=== PATIENT | male | born 1945 | race Caucasian/White ===

== ENCOUNTER 2021-05-12 02:42 | Day surgery (SDC) | payer OTHER, SELFPAY ==
[2021-03-27 14:17] VITALS: BMI 22.1
[2021-04-24 14:30] VITALS: BMI 22.4
[2021-05-12 06:54] VITALS: BP 158/67; PULSE 67; RESP 18; TEMP 36.4; O2SAT 100; BMI 21.4
[2021-05-12] MEDS: LACTATED RINGERS 1,000 ML 150 ML IV CONT (07:01)
--- NOTE | 2021-05-12 07:21 | WPDANESEPPF ---
Anes - Initial Pre Proc Eval Procedure: Operation Date: 05/12/21 08:00 Proposed Procedures p Colonoscopy - Morris Vyas MD Date/Time: 05/12/21 07:21 Surgeon: Morris Vyas MD Pre Op Diagnosis: ulcerative colitis Patient Data Age: 76 Gender: M Height: 1.75 m Weight: 66 kg Last Vital Signs Temp 36.4 C L 05/12/21 06:54 Pulse 67 05/12/21 06:54 Resp 18 05/12/21 06:54 BP 158/67 H 05/12/21 06:54 Pulse Ox 100 05/12/21 06:54 Allergies Allergy/AdvReac Type Severity Reaction Status Date / Time No Known Allergies Allergy Verified 05/12/21 06:52 Home Medications Medication Instructions Recorded Confirmed Type balsalazide 750 mg capsule 2,250 mg PO BID 05/19/19 04/24/21 History cetirizine 10 mg tablet 5 mg PO DAILY PRN 05/19/19 03/27/21 History flaxseed oil 1,000 mg capsule 1,000 mg PO DAILY 05/19/19 04/24/21 History glucosamine sulfate 500 mg tablet 500 mg PO BID 05/19/19 04/24/21 History multivitamin 2 tablet PO DAILY tablet 05/19/19 04/24/21 History saw palmetto 1,000 mg capsule 1,000 mg PO DAILY 05/19/19 04/24/21 History azelastine 137 mcg (0.1 %) nasal See Rx Instructions .ROUTE .COMPLEX 06/19/19 03/10/21 History spray aerosol sildenafil 100 mg tablet See Rx Instructions .ROUTE 06/19/19 03/10/21 History .COMPLEX PRN infliximab 100 mg intravenous 400 mg IVPB .COMPLEX each 02/19/20 04/24/21 History solution famotidine 40 mg tablet See Rx Instructions .ROUTE 11/14/20 03/27/21 Rx .COMPLEX #180 tablet fenofibric acid (choline) 135 mg See Rx Instructions .ROUTE 01/23/21 04/24/21 Rx capsule,delayed release .COMPLEX #90 cap ipratropium bromide 42 mcg (0.06 See Rx Instructions .ROUTE 02/15/21 03/10/21 Rx %) nasal spray .COMPLEX #15 ml lisinopril 20 mg tablet See Rx Instructions .ROUTE 04/24/21 04/24/21 Rx .COMPLEX #90 tablet zolpidem 5 mg PO ONCE PRN 04/24/21 04/24/21 History Patient hx anesthesia problems: none Family hx anesthesia problems: none Results Review: All pre-operative results and documents have been reviewed as part of the pre-operative evaluation. [facility] Past Medical History Medical History Arthritis Chronic GERD Degenerative joint disease, shoulder, left HTN (hypertension) Impingement syndrome of left shoulder Left shoulder pain Psoriasis Seasonal allergic rhinitis Ulcerative colitis Vision abnormalities Family History Family History Father Family history of cardiovascular disease, Onset Age: 68 Family history of liver disease, Onset Age: 68 Sibling Family history of lung cancer, Onset Age: 56 Mother Family history of dementia, Onset Age: 87 Family history of congestive heart failure, Onset Age: 87 Other Hypertension Social History Social History Smoking status: Former smoker Additional smoking assessment comments: quit 38 years Alcohol intake: current Drinks per week: 14 Alcohol use details: OCCATIONALLY Substance use: unknown Living arrangements: with family Gender identity (if verbalized by the patient): Male Spiritual care concerns: No Anes - Eval Final PreProcedure Day of Procedure 05/12/21 07:21 Patient weight: normal Heart: regular rate and rhythm Airway: Mallampati scale class II Neurological: alert and oriented Last oral intake: >/= 8 hours ASA classification: III Emergent: no Anesthetic plan: proceed Anesthesia type and monitoring: general GIVS and standard monitoring Results Review: All pre-operative results and documents have been reviewed as part of the pre-operative evaluation. Informed Consent: The patient's anesthetic plan and its attendant risks and benefits were discussed with the patient/family/POA. Questions were solicited and answers provided to the satisfaction of the patient/f
--- NOTE | 2021-05-12 07:51 | WPDGICN ---
Assessment and Plan Assessment and plan (1) Ulcerative colitis: Qualifiers: Ulcerative colitis location: unspecified ulcerative colitis location Digestive disease complication type: without complication Qualified Code(s): K51.90 - Ulcerative colitis, unspecified, without complications Code(s): K51.90 - Ulcerative colitis, unspecified, without complications Status: Acute Assessment and Plan: Patient with a longstanding history of ulcerative colitis. Plan is for surveillance colonoscopy now and at intervals in the future. he should continue Remicade and balsalazide. Further recommendations will be given after colonoscopy. (2) Chronic GERD: Code(s): K21.9 - Gastro-esophageal reflux disease without esophagitis Status: Acute Assessment and Plan: Patient has a history of acid reflux. Currently stable on famotidine 40 mg p.o. daily. GI Consult Note Consult date/time: 05/12/21 07:51 HPI: Issac Downing is a 76 year old male Presents for surveillance colonoscopy. Patient has a long history of ulcerative colitis. He has been in remission for several years on Remicade supplement with balsalazide. He states he has no bleeding. His bowel habits are normal and regular. He very infrequently will take an Imodium AD if he has a brief loose stool. His weight has remained stable. The history is noncontributory. He presents today for surveillance examination. Review of Systems Review of Systems: All systems reviewed & are unremarkable except as noted in HPI and below PMFSH Past Medical History Medical History Arthritis Chronic GERD Degenerative joint disease, shoulder, left HTN (hypertension) Impingement syndrome of left shoulder Left shoulder pain Psoriasis Seasonal allergic rhinitis Ulcerative colitis Vision abnormalities Family History Family History Father Family history of cardiovascular disease, Onset Age: 68 Family history of liver disease, Onset Age: 68 Sibling Family history of lung cancer, Onset Age: 56 Mother Family history of dementia, Onset Age: 87 Family history of congestive heart failure, Onset Age: 87 Other Hypertension Social History Social History Smoking status: Former smoker Additional smoking assessment comments: quit 38 years Alcohol intake: current Drinks per week: 14 Alcohol use details: OCCATIONALLY Substance use: unknown Living arrangements: with family Gender identity (if verbalized by the patient): Male Spiritual care concerns: No Meds Home Medications and Allergies Home Medications Medication Instructions Recorded Confirmed Type balsalazide 750 mg capsule 2,250 mg PO BID 05/19/19 04/24/21 History cetirizine 10 mg tablet 5 mg PO DAILY PRN 05/19/19 03/27/21 History flaxseed oil 1,000 mg capsule 1,000 mg PO DAILY 05/19/19 04/24/21 History glucosamine sulfate 500 mg tablet 500 mg PO BID 05/19/19 04/24/21 History multivitamin 2 tablet PO DAILY tablet 05/19/19 04/24/21 History saw palmetto 1,000 mg capsule 1,000 mg PO DAILY 05/19/19 04/24/21 History azelastine 137 mcg (0.1 %) nasal See Rx Instructions .ROUTE .COMPLEX 06/19/19 03/10/21 History spray aerosol sildenafil 100 mg tablet See Rx Instructions .ROUTE 06/19/19 03/10/21 History .COMPLEX PRN infliximab 100 mg intravenous 400 mg IVPB .COMPLEX each 02/19/20 04/24/21 History solution famotidine 40 mg tablet See Rx Instructions .ROUTE 11/14/20 03/27/21 Rx .COMPLEX #180 tablet fenofibric acid (choline) 135 mg See Rx Instructions .ROUTE 01/23/21 04/24/21 Rx capsule,delayed release .COMPLEX #90 cap ipratropium bromide 42 mcg (0.06 See Rx Instructions .ROUTE 02/15/21 03/10/21 Rx %) nasal spray .COMPLEX #15 ml lisinopril 20 mg tablet See R
[2021-05-12 08:16] VITALS: BP 96/45; PULSE 58; RESP 20; O2SAT 97
[2021-05-12 08:26] VITALS: BP 124/58; PULSE 54; RESP 20; O2SAT 99
[2021-05-12 08:36] VITALS: BP 138/74; PULSE 64; RESP 18; O2SAT 99
== END 2021-05-12 08:44 | disposition home or self-care (01) ==
PROVIDERS: PCP Emergency Medicine; Visit Provider Internal Medicine Gastroenterology
PROC: 0DJD8ZZ Inspection of Lower Intestinal Tract, Via Natural or Artificial Opening Endoscopic (ICD-10-PCS; CPT 45378; principal; 2021-05-12 08:00)
DX: K51.00 Ulcerative (chronic) pancolitis without complications (principal); K64.8 Other hemorrhoids; K57.30 Diverticulosis of large intestine without perforation or abscess without bleeding; K21.9 Gastro-esophageal reflux disease without esophagitis; M19.90 Unspecified osteoarthritis, unspecified site; I10 Essential (primary) hypertension; L40.9 Psoriasis, unspecified; Z87.891 Personal history of nicotine dependence
CPT/HCPCS: 45380; 88305; J7120

== ENCOUNTER → 2022-05-03 11:43 | Outpatient (CLI) | payer OTHER, SELFPAY ==
--- NOTE | ~2022-05-03 | DEXA_ITS ---
Bone Density Report Name: AXEL MCKAY Age: 77 Sex: Male Ethnicity: White Date of : 1945 Indication: screening for osteoporosis; height loss; inflammatory bowel disease; postmenopausal Referring Provider: JOEY GUTIERREZ Study: Bone densitometry was performed. Exam Date: May 03, 2022 Accession number: [id number] Bone Density: Region BMD T-score Z-score Classification AP Spine (L1-L4) 1.191 0.9 1.9 Normal Femoral Neck (Left) 0.775 -1.1 0.2 Osteopenia Total Hip (Left) 0.964 -0.5 0.4 Normal Femoral Neck (Right) 0.766 -1.2 0.1 Osteopenia Total Hip (Right) 0.917 -0.8 0.1 Normal Total Hip Mean 0.941 -0.7 0.3 Normal World Health Organization criteria for BMD impression classify patients as: Normal (T-score at or above -1.0), Osteopenia (T-score between -1.0 and -2.5), or Osteoporosis (T-score at or below -2.5). 10-year Fracture Risk(1): Major Osteoporotic Fracture 5.6% Hip Fracture 1.5% Reported Risk Factors: [place] (), Neck BMD=0.766, BMI=22.8 (1) FRAX(R) Version 3.08. Fracture probability calculated for an untreated patient. Fracture probability may be lower if the patient has received treatment. Clinical Information Provided by Patient: Has used the following medications: Vitamin D Has the following medical conditions: Inflammatory bowel diseases Patient maximum height was 69 Drinks caffeinated beverages Impression: The patient has low bone mass, based on the Right Femoral Neck T-score. The patient has an estimated ten-year risk of hip fracture of 1.5% and an estimated ten-year risk of major fracture of 5.6%, based on the WHO FRAX algorithm. Discussion: BONE DENSITY IS LOW AT ONE OR MORE SKELETAL SITES. This patient's lowest T-score is low at one or more skeletal sites. It meets the World Health Organization's (WHO) criteria for ?low bone mass? (T-score between -1.0 and -2.5). The patient's 10-year risk of fracture as calculated by FRAX is less than the threshold where pharmacological therapy is recommended by the National Osteoporosis Foundation (NOF). However, all treatment decisions require clinical judgment and consideration of individual patient factors, including patient preferences, comorbidities, previous drug use, risk factors not captured in the FRAX model (e.g., frailty, falls, vitamin D deficiency, increased bone turnover, interval significant decline in bone density) and possible under or overestimation of fracture risk by FRAX. The patient should follow a healthful lifestyle (good nutrition with adequate calcium and vitamin D, and appropriate weight-bearing exercise). Follow-Up: Consider repeating this study in 2 to 3 years to reassess this patient's status, or sooner if there is some new clinical indication. Reported by: [facility] on 05/03/2022 12:02:00 PM.
== END ==
PROVIDERS: PCP Emergency Medicine; Visit Provider Emergency Medicine
DX: M85.822 Other specified disorders of bone density and structure, left upper arm (principal); M85.852 Other specified disorders of bone density and structure, left thigh; M85.851 Other specified disorders of bone density and structure, right thigh
CPT/HCPCS: 77080

== ENCOUNTER 2023-04-17 16:06 | Outpatient (CLI) | payer OTHER, SELFPAY ==
--- NOTE | ~2023-04-17 | US_ITS ---
EXAMINATION: US carotid duplex BI DATE: 04/17/2023 16:41 INDICATION: Carotid bruit TECHNIQUE: Grayscale, color Doppler, and pulsed Doppler images of the cervical carotid arteries were obtained. The degree of vessel stenosis is placed in one of the following categories: normal, <50%, 5 0-69%, >=70% but less than near-occlusion, near-occlusion, or total occlusion. Note that percent sten osis relative to normal distal artery lumen diameter is indirectly measured from velocity measurement s as described by Kemar, et al. Radiology 2003; 229:340-346. Notes: Normal: Peak systolic velocity <125 centimeters/sec and no plaque <50%. Peak systolic velocity <125 ( EDV <40; ICA/CCA PSV ratio <2.0; used these factors only a tandem lesions or low cardiac output or co ntralateral disease) 50-69 %: PSV 125-230 (EDV 40-100; ratio 2-4) >= 70% but less than near occlusion: PSV greater than 230 (EDV > 100; ratio> 4.0) Near Occlusion: PSV that is variable; markedly narrowed lumen Occlusion: Absent flow on color/spectral Doppler and no lumen on mendez scale. COMPARISON: None. FINDINGS: RIGHT: The right common carotid artery (CCA) peak systolic velocity (PSV) is 86 cm/s. The right internal car otid artery (ICA) PSV is 101 cm/s. The right ICA end-diastolic velocity (EDV) is 25 cm/s. The right I CA/CCA PSV ratio is 1.2. The external carotid artery (ECA) PSV is 193 cm/s. There is antegrade flow i n the right vertebral artery. LEFT: The left CCA PSV is 153 cm/s. The left ICA PSV is 174 cm/s. The left ICA EDV is 19 cm/s. The left ICA /CCA PSV ratio is 1.1. The ECA PSV is 149 cm/s. There is antegrade flow in the left vertebral artery . IMPRESSION: 1. Less than 50% stenosis in the right internal carotid artery by sonographic criteria. 2. 50-69% stenosis in the left internal carotid artery by sonographic criteria. Reviewed, dictated and finalized at location B. IMPRESSION: 1. Less than 50% stenosis in the right internal carotid artery by sonographic c riteria. 2. 50-69% stenosis in the left internal carotid artery by sonographic criteria.
== END 2023-04-17 16:07 | disposition home or self-care (01) ==
PROVIDERS: PCP Emergency Medicine; Visit Provider Emergency Medicine
DX: I65.23 Occlusion and stenosis of bilateral carotid arteries (principal); R09.89 Other specified symptoms and signs involving the circulatory and respiratory systems
CPT/HCPCS: 93880

== ENCOUNTER → 2023-08-19 14:26 | Outpatient (CLI) | payer OTHER, SELFPAY ==
--- NOTE | ~2023-08-19 | XR_ITS ---
EXAMINATION: XR hand RT 2V DATE: 08/19/2023 14:40 INDICATION: One month of right hand pain TECHNIQUE: Posteroanterior and lateral views of the right hand were obtained. COMPARISON: None. FINDINGS: Alignment is normal. No fracture. Polyarticular osteoarthritis, moderate severity at the distal radio ulnar joint and at the scaphoid capitate articulation of the midcarpal joint and at the fifth distal interphalangeal joint. Mild osteoarthritis at the triscaphe, first carpometacarpal, third and fourth metacarpophalangeal joints and many of the remaining interphalangeal joints with distal predominance. No erosions. Soft tissues are unremarkable. IMPRESSION: 1. 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 No acute osseous abnorm ality. Reviewed, dictated and finalized at location A. IALTY TRANSFORMER ASSEMBLER IMPRESSION: 1. 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 N o acute osseous abnormality.
== END ==
PROVIDERS: PCP Emergency Medicine; Visit Provider Emergency Medicine
DX: M79.641 Pain in right hand (principal)
CPT/HCPCS: 73120

== ENCOUNTER 2024-09-01 00:29 | Day surgery (SDC) | payer OTHER, SELFPAY ==
[2024-08-17 14:29] VITALS: BMI 22.8
--- OUTSIDE RECORDS SUMMARY | 2024-09-01 00:31 | XMS_ITS | Referral Summary ---
Author Organization [facility] Address [address] [place] [address] Care Team Providers Care Grain Ii Farmworker Name Role Phone Narciso Ryan MD Primary Care Provide r Allergies No known active allergies Medications amLODIPine (NORVASC) 10 mg tablet Take 1 tablet (10 mg total) by mouth daily 04/12/2023 Active Remicade 100 mg injection 04/23/2023 Active lisinopriL (PRINIVIL,ZESTR IL) 20 mg tablet Take 1 tablet (20 mg total) by mouth daily 04/11/2023 Active ipratropium (ATROVENT) 42 mcg (0.06 %) nasal spray 06/06/2023 Active fenofibrate choline (TRILIPIX) 135 mg capsule Take 1 capsule (135 mg total) by mouth daily 04/10/2023 Active famotidine (PEPCID) 40 mg tablet Take 1 tablet (40 mg total) by mouth 2 (two) times a day Active azithromycin (ZITHROMAX) 250 mg tablet Take 2 tabs (500 mg) by mouth today, than 1 tab (250 mg) daily for 4 days. 6 tablet 06/07/2023 Active Active Problems No known active problems Social History Tobacco Use Types Packs/Day Years Used Date Smoking Tobacco: Former Cigarettes Q uit: 07/08/1983 Alcohol Use Standard Drinks/Week Comments Yes 0 (1 standard drink = 0.6 oz pur e alcohol) Personal Safety Answer Date Recorded Getting School Help Needed Not on file 07/10 Sex and Gender Information Value Date Recorded Sex Assigned at Not on file Legal Sex Male 2:24 AM IRON PILER Gender Identity Not on file Sexual Orientation Not on file Last Filed Vital Signs Vital Sign Reading Time Taken Comments Blood Pressure 140/78 06/07/2023 12:24 PM IRON PILER Pulse 81 06/07/2023 12:24 PM IRON PILER Temperature 37.1 C (98.7 F) 06/07/2023 12:24 PM IRON PILER Respiratory Rate 20 06/07/2023 12:24 PM IRON PILER Oxygen Saturation 99% 06/07/2023 12:24 PM IRON PILER Inhaled Oxygen Concentration - - Weight 68.9 kg (152 lb) 06/07/2023 12:24 PM IRON PILER Height 172.7 cm (5' 8 ) 06/07/2023 12:24 PM IRON PILER Body Mass Index 23.11 06/07/2023 12:24 PM IRON PILER Plan of Treatment [place] [place] [address] [facility] [place] [address] Care Teams Grain Ii Farmworker Relationship Specialty Start Date End Date Nraciso Ryan MD [address] [place] [address] PCP - General Emergency Medicine 06/07/23
--- OUTSIDE RECORDS SUMMARY | 2024-09-01 00:31 | XMS_ITS | Encounter Summary ---
Author Organization [facility] Address [address] [place] [address] Phone Care Team Providers Care Machine Stone Polisher Apprentice Name Role Phone Quincy Monet Primary Care Provider Narciso Ryan MD Primary Care Provide r Encounter Details Date Type Department Care Team (Late st Contact Info) Description 09/12/2017 Orders Only [facility] ProviderLázaro MD [facility] [place] [address] Social History Tobacco Use Types Packs/Day Years Used Date Smoking Tobacco: Former Cigarettes Q uit: 07/08/1983 Alcohol Use Standard Drinks/Week Comments Yes 0 (1 standard drink = 0.6 oz pur e alcohol) Sex and Gender Information Value Date Recorded Sex Assigned at Not on file Legal Sex Male 2:24 AM ORACLE DATABASE CONSULTANT Gender Identity Not on file Sexual Orientation Not on file documented as of this encounter Plan of Treatment Not on file documented as of this encounter Procedures Procedure Name Priority Date/Time Associated Diagnosis Comments DISCHARGE LABORATORY CUMULATIVE REPORT 09/12/2017 12:00 AM ORACLE DATABASE CONSULTANT documented in this encounter Results * DISCHARGE LABORATORY CUMULATIVE REPORT (09/12/2017 12:00 AM ORACLE DATABASE CONSULTANT) Narrative 09/12/2017 12:00 AM ORACLE DATABASE CONSULTANT Ordered by an unspecified provider. Historical Provider LAB BLOOD ORDERABLES Sowmya l Result documented in this encounter Visit Diagnoses Not on filedocumented in this encounter Care Teams Machine Stone Polisher Apprentice Relationship Specialty Start Date End Date Quincy Monet [address] [place] [address] PCP - General 10/19/13 06/06/23 Narciso Ryan MD [address] [place] [address] PCP - General Emergency Medicine 06/07/23 documented as of this encounter
--- OUTSIDE RECORDS SUMMARY | 2024-09-01 00:31 | XMS_ITS | Clinical Summary ---
Author Organization [facility] Address [address] [place] [address] Care Team Providers Care Submarine Diver Name Role Phone Narciso Ryan MD Primary Care Provider [phone] Medications amLODIPine (NORVASC) 10 MG tablet Take 1 tablet (10 mg total) by mouth daily. 3 Active balsalazide (COLAZAL) 750 MG capsule Take 3 capsules (2,250 mg total) by mouth 2 (two) times daily. 3 Active Choline Fenofibrate (FENOFIBRIC ACID) 135 MG CAPSULE DELAYED RELEASE Take 1 capsule by mouth daily. 3 Active famotidine (PEPCID) 40 MG tablet Take 1 tablet (40 mg total) by mouth 2 (two) times daily. 3 Active REMICADE 100 MG injection 3 Active lisinopril (PRINIVIL) 20 MG tablet Take 1 tablet (20 mg total) by mouth daily. 3 Active ipratropium (ATROVENT) 0.06 % nasal spray ADMINISTER 2 SPRAYS IN EACH NOSTRIL THREE TIMES A DAY Active zolpidem (AMBIEN) 5 MG tablet TAKE 1 TABLET BY MOUTH ONCE NEEDED FOR SLEEP 3 Active Active Problems Problem Noted Date Diagnosed Date Bilateral carotid artery stenosis 05/22/2023 Immunizations Name Administration Dates Next Due Influenza Adult (Generic) 04/21/2017,07/2015,04/14/2015,05/06/2014,2012 Pneumococcal (Prevnar 20) 09/06/2022 Shingrix 03/05/2023,11/07/2022 Family History Medical History Relation Comments Liver Disease Father cardiovascular disease Father CHF Mother Dementia Mother Relation Status Comments Father Mother Social History Tobacco Use Types Packs/Day Years Used Date Smoking Tobacco: Former Cigarettes Alcohol Use Standard Drinks/Week Comments Yes 0 (1 standard drink = 0.6 oz pur e alcohol) 14 drinks a week Sex and Gender Information Value Date Recorded Sex Assigned at Not on file Legal Sex Male 9:10 AM CDT Gender Identity Not on file Sexual Orientation Not on file Last Filed Vital Signs Vital Sign Reading Time Taken Comments Blood Pressure 160/80 04/23/2024 2:31 PM CDT Pulse 84 04/23/2024 2:31 PM CDT Temperature - - Respiratory Rate - - Oxygen Saturation - - Inhaled Oxygen Concentration - - Weight 71.7 kg (158 lb) 04/23/2024 2:31 PM CDT Height 172.7 cm (5' 8 ) 04/23/2024 2:31 PM CDT Body Mass Index 24.02 04/23/2024 2:31 PM CDT Plan of Treatment Upcoming Encounters Date Type Department Care Team (Late st Contact Info) Description 04/07/2025 1:00 PM CDT Appointment [facility] [place], [place] [id number] Reymundo Hawkins MD [facility] [address] [place], [place] [address] 04/08/2025 11:45 AM CDT Office Visit [facility], [facility] [address] [place], [place] [address] Reymundo Hawkins MD [facility]. [facility] [address] [place], [place] [id number] Health Maintenance Due Date Last Done Comments Hepatitis C 1963 DTaP, Tdap and Td Vaccines (1 - Tdap) 1966 Annual Medicare Wellness Visit 2012 RSV Immunization or 60+ Years (1 - 1-dose 75+ series) 2022 COVID-19 Vaccine ( season) 2024 04/19/2023, 04/09/2022, 10/26/2021, Additional history exists Influenza Adult (#1) 2024 04/21/2017, 05/08/2016, 04/14/2015, Additional history exists Pneumococcal Vaccine: 65+ Years Completed 09/06/2022 Zoster Vaccines Completed 03/05/2023, 11/07/2022 Meningococcal B Vaccine Aged Out No l onger eligible based on patient's age to complete this topic Meningococcal Vaccine Aged Out No ping sabine eligible based on patient's age to complete this topic RSV Immunizations Under 20 Months Aged Out No longer eligible based on patient's age to complete this topic Insurance [employer] Care Teams Submarine Diver Relationship Specialty Start Date End Date Narciso Ryan MD [address] [place] [address] PCP - General INTERNAL MEDICINE 07/08/22
--- OUTSIDE RECORDS SUMMARY | 2024-09-01 00:31 | XMS_ITS | Clinical Summary ---
Author Organization [facility] Address [address] [place] [address] Care Team Providers Care Corn Shredder Name Role Phone Narciso Ryan MD Primary [...] Active Active Problems No known active problems Medical History Medical History Date Comments Ulcerative colitis (HCC) Ulcerat omreo Colitis Family History Medical History Relation Name Comments Heart attack Father 2 Myocardial Infa rction; Stroke Maternal Grandfather 2 Strok e; Relation Name Status Comments Father 1 Alive Father 2 Maternal Grandfather 1 Alive Maternal Grandfather 2 Social History Tobacco Use Types Packs/Day Years Used Date Smoking Tobacco: Former Cigarettes Q uit: 07/08/1983 Alcohol Use Standard Drinks/Week Comments Yes 0 (1 standard drink = 0.6 oz pur e alcohol) Personal Safety Answer Date Recorded Getting School Help Needed Not on file 07/10 Sex and Gender Information Value Date Recorded Sex Assigned at Not on file Legal Sex Male 2:24 AM CUSTOM HOME INSTALLER Gender Identity Not on file Sexual Orientation Not on file Obstetrics History Last Filed Vital Signs Vital Sign Reading Time Taken Comments Blood Pressure 140/78 06/07/2023 12:24 PM CUSTOM HOME INSTALLER Pulse 81 06/07/2023 12:24 PM CUSTOM HOME INSTALLER Temperature 37.1 C (98.7 F) 06/07/2023 12:24 PM CUSTOM HOME INSTALLER Respiratory Rate 20 06/07/2023 12:24 PM CUSTOM HOME INSTALLER Oxygen Saturation 99% 06/07/2023 12:24 PM CUSTOM HOME INSTALLER Inhaled Oxygen Concentration - - Weight 68.9 kg (152 lb) 06/07/2023 12:24 PM CUSTOM HOME INSTALLER Height 172.7 cm (5' 8 ) 06/07/2023 12:24 PM CUSTOM HOME INSTALLER Body Mass Index 23.11 06/07/2023 12:24 PM CUSTOM HOME INSTALLER Plan of Treatment Health Maintenance Due Date Last Done Comments Depression Screening 1945 Fall Risk Assessment 1945 Hepatitis C Screening 1945 DTaP/Tdap/Td Vaccine (1 - Tdap) 1958 Hepatitis B Screening 1965 Pneumococcal vaccine 65+ (1 of 2 - PCV) 1966 Well Visit 65+ 2012 Influenza Vaccine (#1) 2024 7, 05/08/2016, 05/08/2016, Additional history exists Zoster Vaccine Completed 03/05/2023, 11/07/[address] [facility] [place] [id number] Care Teams Corn Shredder Relationship Specialty Start Date End Date Narciso Ryan MD [address] [place] [address] PCP - General Emergency Medicine 06/07/23
[2024-09-01 06:17] VITALS: BP 98/60; PULSE 73; RESP 18; TEMP 36.1; O2SAT 100; BMI 22.4
[2024-09-01] MEDS: LACTATED RINGERS 1,000 ML 150 ML IV CONT (06:27)
--- NOTE | 2024-09-01 07:07 | WPDANESEPPF ---
Anes - Initial Pre Proc Eval Procedure: Operation Date: 09/01/24 07:30 Proposed Procedures p Colonoscopy - Kristian Rosado MD Date/Time: 09/01/24 07:07 Surgeon: Kristian Rosado MD Pre Op Diagnosis: Ulcerative colitis Patient Data Age: 79 Gender: M Height: 1.75 m Weight: 69 kg Last Vital Signs Temp 36.1 C L 09/01/24 06:17 Pulse 73 09/01/24 06:17 Resp 18 09/01/24 06:17 BP 98/60 L 09/01/24 06:17 Pulse Ox 100 09/01/24 06:17 O2 Del Method Room Air 09/01/24 06:17 Allergies Allergy/AdvReac Type Severity Reaction Status Date / Time No Known Allergies Allergy Verified 09/01/24 06:15 Home Medications ?Medication ?Instructions ?Recorded ?Confirmed ?Type cetirizine 10 mg tablet (Zyrtec) 5 mg PO DAILY PRN allergies 05/19/19 09/01/24 History glucosamine sulfate 500 mg tablet 500 mg PO BID 05/19/19 09/01/24 History (Glucosamine) multivitamin 2 tablet PO DAILY 05/19/19 09/01/24 History saw palmetto 1,000 mg capsule 1,000 mg PO DAILY 05/19/19 09/01/24 History infliximab 100 mg intravenous 400 mg IV .COMPLEX 02/19/20 08/17/24 History solution (Remicade) coenzyme Q10 30 mg capsule (Co 30 mg PO DAILY 11/29/21 09/01/24 History Q-10) cholecalciferol (vitamin D3) 325 325 mcg PO WEEKLY 10/11/22 09/01/24 History mcg (13,000 unit) capsule balsalazide 750 mg capsule See Rx Instructions .Route 11/04/23 09/01/24 Rx .COMPLEX #540 caps famotidine 40 mg tablet See Rx Instructions .Route 12/03/23 09/01/24 Rx .COMPLEX #180 tabs amlodipine 10 mg tablet See Rx Instructions .Route 01/03/24 09/01/24 Rx .COMPLEX #90 tabs fenofibric acid (choline) 135 mg See Rx Instructions .Route 03/31/24 09/01/24 Rx capsule,delayed release .COMPLEX #90 caps ipratropium bromide 42 mcg (0.06 See Rx Instructions .Route 06/11/24 08/17/24 Rx %) nasal spray .COMPLEX #15 mL lisinopril 20 mg tablet See Rx Instructions .Route 06/29/24 09/01/24 Rx .COMPLEX #90 tabs zolpidem 5 mg tablet 5 mg PO ONCE PRN Sleep #30 tabs 08/13/24 08/17/24 Rx Patient hx anesthesia problems: none Family hx anesthesia problems: none Results Review: All pre-operative results and documents have been reviewed as part of the pre-operative evaluation. 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, shoulder, left Arthritis Psoriasis HTN (hypertension) Vision abnormalities Chronic GERD Left shoulder pain Ulcerative colitis Surgical History Surgical History History of hernia surgery Family History Family History Father Family history of cardiovascular disease, Onset Age: 68 Family history of liver disease, Onset Age: 68 Sibling Family history of lung cancer, Onset Age: 56 Mother Family history of dementia, Onset Age: 87 Family history of congestive heart failure, Onset Age: 87 Other Hypertension Social History Social History Smoking packs per day: 1 Smoking cigarettes per day: 20.0 Smoking status: Former smoker Tobacco type: cigarettes Additional smoking assessment comments: quit 38 years Alcohol intake: current Drinks per week: 14 Alcohol use details: OCCATIONALLY Substance use: unknown Do You Feel Safe in your Home?: Yes Lack of Transportation: No Lack of Food: Never True Current Housing: I Have Housing Concerned About Future Housing: No Difficulty Paying Gas/Electric Bills: No Difficulty Paying for Meds: No Currently Unemployed: No Education: Master's Degree or Higher Difficulty w/ Childcare or Family Care: No Living arrangements: with family Occupation/Education: retired Gender identity (if verbalized by the patient): Male Spiritual care concerns: No Anes - Eval Final PreProcedure Day of Procedure 09/01/24 07:07 Patient weight: normal Heart: regular rate and rhythm Lungs: clear to auscultation and normal air movement Airway: Mallampati scale class II Neurological: alert and oriented Last oral intake: >/= 8 hours ASA classification: III Emergent: no Anesthetic plan: proceed Anesthesia type and monitoring: general GIVS and standard monitoring Results Review: All pre-operative results and documents have been reviewed as part of the pre-operative evaluation. Informed Consent: The patient's anesthetic plan and its attendant risks and benefits were discussed with the patient/family/POA. Questions were solicited and answers provided to the satisfaction of the patient/family/POA.
--- NOTE | 2024-09-01 07:35 | PM.HPGS ---
History of Present Illness History of Present Illness Consent: Risks, benefits, and alternatives have been discussed and questions answered. Patient agrees to proceed with procedure. Chief complaint: Ulcerative colitis Narrative: Issac Downing is a 79 year old male here for another colonoscopy. He was first diagnosis with UC in 1997. For almost 10 years UC has been maintained on remicade infusion and balsalazide, clinically on remission, last colonoscopy 2020 without active colitis. 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, shoulder, left Arthritis Psoriasis HTN (hypertension) Vision abnormalities Chronic GERD Left shoulder pain Ulcerative colitis Surgical History Surgical History History of hernia surgery Family History Family History Father Family history of cardiovascular disease, Onset Age: 68 Family history of liver disease, Onset Age: 68 Sibling Family history of lung cancer, Onset Age: 56 Mother Family history of dementia, Onset Age: 87 Family history of congestive heart failure, Onset Age: 87 Other Hypertension Social History Social History Smoking packs per day: 1 Smoking cigarettes per day: 20.0 Smoking status: Former smoker Tobacco type: cigarettes Additional smoking assessment comments: quit 38 years Alcohol intake: current Drinks per week: 14 Alcohol use details: OCCATIONALLY Substance use: unknown Do You Feel Safe in your Home?: Yes Lack of Transportation: No Lack of Food: Never True Current Housing: I Have Housing Concerned About Future Housing: No Difficulty Paying Gas/Electric Bills: No Difficulty Paying for Meds: No Currently Unemployed: No Education: Master's Degree or Higher Difficulty w/ Childcare or Family Care: No Living arrangements: with family Occupation/Education: retired Gender identity (if verbalized by the patient): Male Spiritual care concerns: No Meds Home Medications and Allergies Home Medications ?Medication ?Instructions ?Recorded ?Confirmed ?Type cetirizine 10 mg tablet (Zyrtec) 5 mg PO DAILY PRN allergies 05/19/19 09/01/24 History glucosamine sulfate 500 mg tablet 500 mg PO BID 05/19/19 09/01/24 History (Glucosamine) multivitamin 2 tablet PO DAILY 05/19/19 09/01/24 History saw palmetto 1,000 mg capsule 1,000 mg PO DAILY 05/19/19 09/01/24 History infliximab 100 mg intravenous 400 mg IV .COMPLEX 02/19/20 08/17/24 History solution (Remicade) coenzyme Q10 30 mg capsule (Co 30 mg PO DAILY 11/29/21 09/01/24 History Q-10) cholecalciferol (vitamin D3) 325 325 mcg PO WEEKLY 10/11/22 09/01/24 History mcg (13,000 unit) capsule balsalazide 750 mg capsule See Rx Instructions .Route 11/04/23 09/01/24 Rx .COMPLEX #540 caps famotidine 40 mg tablet See Rx Instructions .Route 12/03/23 09/01/24 Rx .COMPLEX #180 tabs amlodipine 10 mg tablet See Rx Instructions .Route 01/03/24 09/01/24 Rx .COMPLEX #90 tabs fenofibric acid (choline) 135 mg See Rx Instructions .Route 03/31/24 09/01/24 Rx capsule,delayed release .COMPLEX #90 caps ipratropium bromide 42 mcg (0.06 See Rx Instructions .Route 06/11/24 08/17/24 Rx %) nasal spray .COMPLEX #15 mL lisinopril 20 mg tablet See Rx Instructions .Route 06/29/24 09/01/24 Rx .COMPLEX #90 tabs zolpidem 5 mg tablet 5 mg PO ONCE PRN Sleep #30 tabs 08/13/24 08/17/24 Rx Allergies Allergy/AdvReac Type Severity Reaction Status Date / Time No Known Allergies Allergy Verified 09/01/24 06:15 Vital Signs Vital Signs - 24 hr 09/01/24 06:17 Temperature 97 F L Pulse Rate 73 Respiratory Rate 18 Blood Pressure 98/60 L Pulse Oximetry 100 Oxygen Delivery Room Air Exam Const: General: comfortable and no acute distress HENMT: Face/Nose/Sinus: Normal nares present Eyes: General: appearance normal, both eyes and all related structures Neck: Neck: no JVD Resp: Auscultation: clear to auscultation bilaterally Cardio: Rate: regular rate Rhythm: regular rhythm GI: Inspection: non-distended GI Palp: Yes Soft to palpation Skin: General skin exam: normal color Neuro: General: gait normal Speech: normal speech Extrem: General: normal to inspection Psych: Mental Status: mental status grossly normal Assessment and Plan Assessment and plan (1) Ulcerative colitis: Qualifiers: Ulcerative colitis location: unspecified ulcerative colitis location Digestive disease complication type: without complication Qualified Code(s): K51.90 - Ulcerative colitis, unspecified, without complications Code(s): K51.90 - Ulcerative colitis, unspecified, without complications Status: Acute Assessment and Plan: colonoscopy for dysplasia surveillance on remicade
[2024-09-01 07:47] VITALS: BP 122/51; PULSE 65; RESP 18; O2SAT 97
[2024-09-01] MEDS: METHYLENE BLUE 0.5% INJ 10 ML AMPULE 20 ML IRRIGATION (07:48)
[2024-09-01 07:57] VITALS: BP 127/51; PULSE 69; RESP 26; O2SAT 99
[2024-09-01 08:07] VITALS: BP 145/59; PULSE 61; RESP 18; O2SAT 100
== END 2024-09-01 08:25 | disposition home or self-care (01) ==
PROVIDERS: PCP Emergency Medicine; Referring Provider Internal Medicine Gastroenterology; Visit Provider Internal Medicine Gastroenterology
PROC: 0DJD8ZZ Inspection of Lower Intestinal Tract, Via Natural or Artificial Opening Endoscopic (ICD-10-PCS; CPT 45378; principal; 2024-09-01 07:30)
DX: K51.90 Ulcerative colitis, unspecified, without complications (principal); K57.30 Diverticulosis of large intestine without perforation or abscess without bleeding; Z79.620 Long term (current) use of immunosuppressive biologic
CPT/HCPCS: 45380; 88305; J2003; J2704; J7120; Q9968

== ENCOUNTER 2024-11-19 18:29 | Emergency (ER) | payer OTHER, SELFPAY ==
--- OUTSIDE RECORDS SUMMARY | 2024-11-19 18:31 | XMS_ITS | Encounter Summary ---
Author Organization [facility] Address [address] [place] [address] Phone Care Team Providers Care Business Continuity Consultant Name Role Phone Quincy Monet Primary Care Provider [phone] Narciso Ryan MD Primary Care Provide r Encounter Details Date Type Department Care Team (Late st Contact Info) Description 09/12/2017 Orders Only [facility] ProviderLázaro MD [facility] [place] [address] Social History Tobacco Use Types Packs/Day Years Used Date Smoking Tobacco: Former Cigarettes Q uit: 07/08/1983 Alcohol Use Standard Drinks/Week Comments Yes 0 (1 standard drink = 0.6 oz pur e alcohol) Sex and Gender Information Value Date Recorded Sex Assigned at Not on file Legal Sex Male 2:24 AM WIG STYLIST Gender Identity Not on file Sexual Orientation Not on file documented as of this encounter Plan of Treatment Not on file documented as of this encounter Procedures Procedure Name Priority Date/Time Associated Diagnosis Comments DISCHARGE LABORATORY CUMULATIVE REPORT 09/12/2017 12:00 AM WIG STYLIST documented in this encounter Results * DISCHARGE LABORATORY CUMULATIVE REPORT (09/12/2017 12:00 AM WIG STYLIST) Narrative 09/12/2017 12:00 AM WIG STYLIST Ordered by an unspecified provider. Historical Provider LAB BLOOD ORDERABLES Sowmya l Result documented in this encounter Visit Diagnoses Not on filedocumented in this encounter Care Teams Business Continuity Consultant Relationship Specialty Start Date End Date Quincy Monet [address] [place] [address] PCP - General 10/19/13 06/06/23 Narciso Ryan MD [address] [place] [address] PCP - General Emergency Medicine 06/07/23 documented as of this encounter
--- OUTSIDE RECORDS SUMMARY | 2024-11-19 18:31 | XMS_ITS | Clinical Summary ---
Author Organization [facility] Address [address] [place] [address] Care Team Providers Care Parking Lot Supervisor Name Role Phone Narciso Ryan MD Primary Care Provider [phone] Medications amLODIPine (NORVASC) 10 MG tablet Take [...] Diagnosed Date Bilateral carotid artery stenosis 05/22/2023 Encounters Date Type Department Care Team Description 11/10/2024 Orders Only [facility], [address] [address] [place] [address] Reymundo Hawkins MD from Last 3 Months Immunizations Immunization Administration Dates Next Due Influenza Adult (Generic) [...] Info) Description 04/07/2025 1:00 PM CDT Appointment [facility] V[facility] [place] [id number] Reymundo Hawkins MD Three [facility]. [address] [place], [place] [phone] 04/08/2025 11:45 AM CDT Office Visit [facility], [address] [place], [place] [phone] Reymundo Hawkins MD Three [facility] [place], [place] [phone] 09/08/2025 9:00 AM DIRECTOR OF [facility] Appointment [facility] Vascular Lab [place], [place] [phone] Reymundo Hawkins MD Three [facility]. [address] [place] [address] Health Maintenance Due Date Last Done Comments Hepatitis C 1965 DTaP, Tdap and Td Vaccines (1 - Tdap) 1966 Annual Medicare Wellness Visit 2012 RSV Immunization or 60+ Years (1 - 1-dose 75+ series) 2022 COVID-19 Vaccine ( season) 2024 04/19/2023, 04/09/2022, 10/26/2021, Additional history exists Pneumococcal Vaccine: 50+ Years Completed 09/06/2022 Zoster Vaccines Completed 03/05/2023, 11/07/2022 Meningococcal B Vaccine Aged Out No l onger eligible based on patient's age to complete this topic Meningococcal Vaccine Aged Out No ping sabine eligible based on patient's age to complete this topic RSV Immunizations Under 20 Months Aged Out No longer eligible based on patient's age to complete this topic Insurance [employer] Care Teams Parking Lot Supervisor Relationship Specialty Start Date End Date Narciso Ryan MD [address] [place] [address] PCP - General INTERNAL MEDICINE 07/08/22
--- OUTSIDE RECORDS SUMMARY | 2024-11-19 18:31 | XMS_ITS | Referral Summary ---
Author Organization [facility] Address [address] [place] [address] Care Team Providers Care Demolition Specialist Name Role Phone Narciso Ryan MD Primary [...] on file Legal Sex Male 2:24 AM DIRECTOR SECURITY RISK MANAGEMENT Gender Identity Not on file Sexual Orientation Not on file Last Filed Vital Signs Vital Sign Reading Time Taken Comments Blood Pressure 140/78 06/07/2023 12:24 PM DIRECTOR SECURITY RISK MANAGEMENT Pulse 81 06/07/2023 12:24 PM DIRECTOR SECURITY RISK MANAGEMENT Temperature 37.1 C (98.7 F) 06/07/2023 12:24 PM DIRECTOR SECURITY RISK MANAGEMENT Respiratory Rate 20 06/07/2023 12:24 PM DIRECTOR SECURITY RISK MANAGEMENT Oxygen Saturation 99% 06/07/2023 12:24 PM DIRECTOR SECURITY RISK MANAGEMENT Inhaled Oxygen Concentration - - Weight 68.9 kg (152 lb) 06/07/2023 12:24 PM DIRECTOR SECURITY RISK MANAGEMENT Height 172.7 cm (5' 8 ) 06/07/2023 12:24 PM DIRECTOR SECURITY RISK MANAGEMENT Body Mass Index 23.11 06/07/2023 12:24 PM DIRECTOR SECURITY RISK MANAGEMENT Plan of Treatment [place] [address] [place] [address] Care Teams Demolition Specialist Relationship Specialty Start Date End Date Narciso Ryan MD [address] [place] [address] PCP - General Emergency Medicine 06/07/23
--- OUTSIDE RECORDS SUMMARY | 2024-11-19 18:31 | XMS_ITS | Clinical Summary ---
Author Organization [facility] Address [address] [place] [address] Care Team Providers Care Master Sheet Clerk Name Role Phone Narciso Ryan MD Primary [...] History Date Comments Ulcerative colitis (HCC) Ulcerat omero Colitis Family History Medical History Relation Name [...] on file Legal Sex Male 2:24 AM EVENTS SPECIALIST Gender Identity Not on file Sexual Orientation Not on file Obstetrics History Last Filed Vital Signs Vital Sign Reading Time Taken Comments Blood Pressure 140/78 06/07/2023 12:24 PM EVENTS SPECIALIST Pulse 81 06/07/2023 12:24 PM EVENTS SPECIALIST Temperature 37.1 C (98.7 F) 06/07/2023 12:24 PM EVENTS SPECIALIST Respiratory Rate 20 06/07/2023 12:24 PM EVENTS SPECIALIST Oxygen Saturation 99% 06/07/2023 12:24 PM EVENTS SPECIALIST Inhaled Oxygen Concentration - - Weight 68.9 kg (152 lb) 06/07/2023 12:24 PM EVENTS SPECIALIST Height 172.7 cm (5' 8 ) 06/07/2023 12:24 PM EVENTS SPECIALIST Body Mass Index 23.11 06/07/2023 12:24 PM EVENTS SPECIALIST Plan of Treatment Health Maintenance Due Date Last Done Comments Depression Screening 1945 Fall Risk Assessment 1945 Hepatitis C Screening 1945 DTaP/Tdap/Td Vaccine (1 - Tdap) 1958 Hepatitis B Screening 1965 Pneumococcal vaccine 65+ (1 of 2 - PCV) 1966 Well Visit 65+ 2012 Influenza Vaccine (#1) 2024 7, 05/08/2016, 05/08/2016, Additional history exists Zoster Vaccine Completed 03/05/2023, 11/07/[address] [facility] [place] [id number] Care Teams Master Sheet Clerk Relationship Specialty Start Date End Date Narciso Ryan MD [address] [place] [address] PCP - General Emergency Medicine 06/07/23
[2024-11-19 18:48] VITALS: BP 185/77; PULSE 78; RESP 16; TEMP 36.9; O2SAT 98
[2024-11-19 19:32] VITALS: BP 179/72; PULSE 74; RESP 12; O2SAT 98
[2024-11-19 19:53] LABS: Basophils Percent Auto 0.2 % (0.2-1.2); Hematocrit 43.3 % (42.0-52.0); Hemoglobin 13.4 g/dL (14.0-18.0); Immature Granulocyte Absolute 0.06 K/mm3 (0.00-0.031); Immature Granulocyte Percent A 0.4 % (0-0.5); Lymphocytes Absolute Auto 1.59 K/mm3 (0.9-3.2); Lymphocytes Percent Auto 11.3 % (18.3-44.2); Mean Corpuscular HGB Conc 30.9 g/dl (32-36); Mean Corpuscular Hemoglobin 26.9 pg (26-34); Mean Corpuscular Volume 86.9 fl (80-100); Mean Platelet Volume 10.4 fl (7.4-10.4); Monocytes Absolute Auto 0.9 K/mm3 (0.1-0.6); Monocytes Percent Auto 6.4 % (2.6-8.5); Neutrophils Absolute Auto 11.5 K/mm3 (1.3-6.7); Neutrophils Percent Auto 81.7 % (45.5-73.1); Platelet Count Result 311 k/mm3 (150-375); Red Blood Count 4.98 M/mm3 (4.6-6.20); Red Cell Distribution Width 14.7 % (11.5-14.5)
[2024-11-19 20:03] LABS: Alanine Aminotransferase 18 U/L (6-50); Albumin Level 4.4 g/dL (3.5-5.1); Alkaline Phosphatase 54 U/L (38-126); Anion Gap 14 mmol/L (4-12); Aspartate Amino Transferase 45 U/L (17-59); Bilirubin,Total 0.7 mg/dL (0.2-1.3); Blood Urea Nitrogen 22 mg/dL (9-20); Calcium 9.2 mg/dL (8.4-10.2); Carbon Dioxide 18 mmol/L (22-30); Chloride 107 mmol/L (98-107); Estimated CRCL calculation 55 ml/min; Estimated Glomerular Filt Rate > 60; Glucose 129 mg/dL (65-110); Potassium 3.7 mmol/L (3.4-5.0); Sodium 139 mmol/L (137-145)
[2024-11-19 20:07] LABS: INR 1.1; Prothrombin Time 14.1 Seconds (11.1-14.7)
[2024-11-19 20:08] LABS: Partial Thromboplastin Time 22.3 Seconds (22.3-36.8)
--- OUTSIDE RECORDS SUMMARY | 2024-11-19 20:38 | XMS_ITS | Referral Summary ---
Author Organization [facility] Address [address] [place] [address] Care Team Providers Care Nuclear Medicine Supervisor Name Role Phone Narciso Ryan MD [...] on file Legal Sex Male 2:24 AM ELECTRICAL HELPER Gender Identity Not on file Sexual Orientation Not on file Last Filed Vital Signs Vital Sign Reading Time Taken Comments Blood Pressure 140/78 06/07/2023 12:24 PM ELECTRICAL HELPER Pulse 81 06/07/2023 12:24 PM ELECTRICAL HELPER Temperature 37.1 C (98.7 F) 06/07/2023 12:24 PM ELECTRICAL HELPER Respiratory Rate 20 06/07/2023 12:24 PM ELECTRICAL HELPER Oxygen Saturation 99% 06/07/2023 12:24 PM ELECTRICAL HELPER Inhaled Oxygen Concentration - - Weight 68.9 kg (152 lb) 06/07/2023 12:24 PM ELECTRICAL HELPER Height 172.7 cm (5' 8 ) 06/07/2023 12:24 PM ELECTRICAL HELPER Body Mass Index 23.11 06/07/2023 12:24 PM ELECTRICAL HELPER Plan of Treatment [place] [address] [facility] [place] [address] Care Teams Nuclear Medicine Supervisor Relationship Specialty Start Date End Date Narciso Ryan MD [address] [place] [address] PCP - General Emergency Medicine 06/07/23
--- OUTSIDE RECORDS SUMMARY | 2024-11-19 20:38 | XMS_ITS | Clinical Summary ---
Author Organization [facility] Address [address] [place] [address] Care Team Providers Care Groover And Striper Operator Name Role Phone Narciso Ryan MD Primary Care Provider [phone] Medications amLODIPine (NORVASC) 10 MG tablet Take [...] Department Care Team Description 11/10/2024 Orders Only [facility], [address] [address] [place] [address] Reymundo Hawkins MD from Last 3 Months [...] Info) Description 04/07/2025 1:00 PM CDT Appointment [facility] Vascular [place], [place] [phone] Reymundo Hawkins MD Three [facility]. [address] [place], [place] [phone] 04/08/2025 11:45 AM CDT Office Visit [facility], [address] [place], [place] [phone] Reymundo Hawkins MD Three [facility]. [address] [place], [place] [phone] 09/08/2025 9:00 AM PIPELINE SUPERINTENDENT Appointment [facility] Vascular Lab [place], [place] [phone] Reymundo Hawkins MD Three [facility]. [address] [place] [address] Health Maintenance Due Date Last [...] complete this topic Insurance [employer] Care Teams Groover And Striper Operator Relationship Specialty Start Date End Date Narciso Ryan MD [address] [place] [address] PCP - General INTERNAL MEDICINE 07/08/22
--- OUTSIDE RECORDS SUMMARY | 2024-11-19 20:38 | XMS_ITS | Clinical Summary ---
Author Organization [facility] Address [address] [place] [address] Care Team Providers Care International Accountant Name Role Phone Narciso Ryan MD Primary [...] on file Legal Sex Male 2:24 AM TYPEWRITER TESTER Gender Identity Not on file Sexual Orientation Not on file Obstetrics History Last Filed Vital Signs Vital Sign Reading Time Taken Comments Blood Pressure 140/78 06/07/2023 12:24 PM TYPEWRITER TESTER Pulse 81 06/07/2023 12:24 PM TYPEWRITER TESTER Temperature 37.1 C (98.7 F) 06/07/2023 12:24 PM TYPEWRITER TESTER Respiratory Rate 20 06/07/2023 12:24 PM TYPEWRITER TESTER Oxygen Saturation 99% 06/07/2023 12:24 PM TYPEWRITER TESTER Inhaled Oxygen Concentration - - Weight 68.9 kg (152 lb) 06/07/2023 12:24 PM TYPEWRITER TESTER Height 172.7 cm (5' 8 ) 06/07/2023 12:24 PM TYPEWRITER TESTER Body Mass Index 23.11 06/07/2023 12:24 PM TYPEWRITER TESTER Plan of Treatment Health Maintenance Due Date Last Done Comments Depression Screening 1945 Fall Risk Assessment 1945 Hepatitis C Screening 1945 DTaP/Tdap/Td Vaccine (1 - Tdap) 1958 Hepatitis B Screening 1965 Pneumococcal vaccine 65+ (1 of 2 - PCV) 1966 Well Visit 65+ 2012 Influenza Vaccine (#1) 2024 7, 05/08/2016, 05/08/2016, Additional history exists Zoster Vaccine Completed 03/05/2023, 11/07/[address] [employer] [place] [id number] Care Teams International Accountant Relationship Specialty Start Date End Date Narciso Ryan MD [address] [place] [address] PCP - General Emergency Medicine 06/07/23
--- OUTSIDE RECORDS SUMMARY | 2024-11-19 20:38 | XMS_ITS | Encounter Summary ---
Author Organization [facility] Address [address] [place] [address] Phone Care Team Providers Care Farm Product Purchaser Name Role Phone Quincy Monet Primary Care Provider [phone] Narciso Ryan MD Primary Care Provide r Encounter Details Date Type Department Care Team (Late st Contact Info) Description 09/12/2017 Orders Only [facility] ProviderLázaro MD [facility] [place] [address] Social History Tobacco Use Types Packs/Day Years Used Date Smoking Tobacco: Former Cigarettes Q uit: 07/08/1983 Alcohol Use Standard Drinks/Week Comments Yes 0 (1 standard drink = 0.6 oz pur e alcohol) Sex and Gender Information Value Date Recorded Sex Assigned at Not on file Legal Sex Male 2:24 AM CLAY WORKER Gender Identity Not on file Sexual Orientation Not on file documented as of this encounter Plan of Treatment Not on file documented as of this encounter Procedures Procedure Name Priority Date/Time Associated Diagnosis Comments DISCHARGE LABORATORY CUMULATIVE REPORT 09/12/2017 12:00 AM CLAY WORKER documented in this encounter Results * DISCHARGE LABORATORY CUMULATIVE REPORT (09/12/2017 12:00 AM CLAY WORKER) Narrative 09/12/2017 12:00 AM CLAY WORKER Ordered by an unspecified provider. Historical Provider LAB BLOOD ORDERABLES Sowmya l Result documented in this encounter Visit Diagnoses Not on filedocumented in this encounter Care Teams Farm Product Purchaser Relationship Specialty Start Date End Date Quincy Monet [address] [address] PCP - General 10/19/13 06/06/23 Narciso Ryan MD [address] [place] [address] PCP - General Emergency Medicine 06/07/23 documented as of this encounter
--- NOTE | 2024-11-19 21:03 | ED_ITS ---
HPI - GI Bleed General Chief complaint: GI Bleed Stated complaint: rectal bleeding Time Seen by Provider: 11/19/24 20:06 History of Present Illness HPI Narrative: Patient is a 79 year old male who presents ER with bloody diarrhea. Began earlier today. He had his Remicade infusion yesterday for ulcerative colitis. Has small squirts of blood. He is not on a blood thinner. No loss of consciousness. Related Data Home Medications Medication Instructions Recorded Confirmed Last Taken Type cetirizine 10 mg tablet (Zyrtec) 5 mg PO DAILY PRN allergies 05/19/19 10/15/24 08/31/24 History glucosamine sulfate 500 mg tablet 500 mg PO BID 05/19/19 10/15/24 08/31/24 History (Glucosamine) multivitamin 2 tablet PO DAILY 05/19/19 10/15/24 08/31/24 History saw palmetto 1,000 mg capsule 1,000 mg PO DAILY 05/19/19 10/15/24 08/31/24 History infliximab 100 mg intravenous 400 mg IV .COMPLEX 02/19/20 10/15/24 05/10/21 History solution (Remicade) coenzyme Q10 30 mg capsule (Co 30 mg PO DAILY 11/29/21 10/15/24 08/31/24 History Q-10) cholecalciferol (vitamin D3) 325 325 mcg PO WEEKLY 10/11/22 10/15/24 08/31/24 History mcg (13,000 unit) capsule Allergies Allergy/AdvReac Type Severity Reaction Status Date / Time No Known Allergies Allergy Verified 11/19/24 19:40 Review of Systems 2 Review of Systems: All systems reviewed & are unremarkable except as noted in HPI and below Constitutional: Constitutional: Reports no additional constitutional complaints ENT: Reports system reviewed and no additional complaints, except as documented Cardiovascular: Cardiovascular: Reports no additional cardiovascular complaints Respiratory: Respiratory: Reports no additional respiratory complaints Gastrointestinal: Gastrointestinal: Reports no additional gastrointestinal complaints [facility] Past Medical History Medical History (Updated 11/19/24 @ 21:18 by Jasper Montero MD) Insomnia Hyperlipidemia Need for hepatitis B screening test High risk medication use Acute right-sided low back pain without sciatica Arthralgia of back Cellulitis of face Erectile dysfunction Pain in right shoulder Right buttock pain Right hip pain Vitamin D deficiency Facial rash Psoriasis Seasonal allergic rhinitis Impingement syndrome of left shoulder Degenerative joint disease, shoulder, left Arthritis Psoriasis HTN (hypertension) Vision abnormalities Chronic GERD Left shoulder pain Ulcerative colitis Surgical History Surgical History History of hernia surgery Family History Family History Father Family history of cardiovascular disease, Onset Age: 68 Family history of liver disease, Onset Age: 68 Sibling Family history of lung cancer, Onset Age: 56 Mother Family history of dementia, Onset Age: 87 Family history of congestive heart failure, Onset Age: 87 Other Hypertension Social History Social History Smoking packs per day: 1 Smoking cigarettes per day: 20.0 Smoking status: Former smoker Tobacco type: cigarettes Additional smoking assessment comments: quit 38 years Alcohol intake: current Drinks per week: 14 Alcohol use details: OCCATIONALLY Substance use: unknown Do You Feel Safe in your Home?: Yes Current Housing: Decline to Answer Concerned About Future Housing: Decline to Answer Difficulty Paying Gas/Electric Bills: Decline to Answer Difficulty Paying for Meds: Decline to Answer Currently Unemployed: Decline to Answer Education: Decline to Answer Difficulty w/ Childcare or Family Care: Decline to Answer Living arrangements: with family Occupation/Education: retired Gender identity (if verbalized by the patient): Male Spiritual care concerns: No Exam 2 Narrative: GENERAL: Well-appearing, well-nourished, and in no acute distress. HEAD: Normocephalic, atraumatic. ENT: Mucous membranes moist. CHEST: Clear to auscultation. No respiratory distress. HEART: Regular rate and rhythm. Normal peripheral pulses. ABDOMEN: Soft, nontender, nondistended. Scant pink blood on digital rectal exam, no stool in rectal vault. EXTREMITIES: Normal range of motion. No edema. SKIN: Warm, dry, no rash. NEURO: Alert and oriented x3. PSYCH: Normal mood and affect. Course Course Emergency Course: Patient given reassurance. Discussed with GI. Will start on prednisone burst for 1 week. Discussed return precautions. Vital Signs Vital signs: Vital Signs Temperature 98.4 F 11/19/24 18:48 Pulse Rate 78 11/19/24 18:48 Respiratory Rate 16 11/19/24 18:48 Blood Pressure 185/77 H 05/15/25 18:48 Pulse Oximetry 98 11/19/24 18:48 Oxygen Delivery Room Air 11/19/24 18:48 Temperature 98.1 F 11/19/24 21:32 Pulse Rate 80 11/19/24 21:32 Respiratory Rate 12 11/19/24 21:32 Blood Pressure 186/73 H 11/19/24 21:32 Pulse Oximetry 96 11/19/24 21:32 Oxygen Delivery Room Air 11/19/24 18:48 MDM - GI Bleed Lab Data 11/19/24 19:47 11/19/24 19:47 Labs: Lab Results 11/19/24 Range/Units 19:47 WBC 14.0 H (4.5-10.0) K/mm3 RBC 4.98 (4.6-6.20) M/mm3 Hgb 13.4 L (14.0-18.0) g/dL Hct 43.3 (42.0-52.0) % MCV 86.9 (80-100) fl MCH 26.9 (26-34) pg MCHC 30.9 L (32-36) g/dl RDW 14.7 H (11.5-14.5) % Plt Count 311 (150-375) k/mm3 MPV 10.4 (7.4-10.4) fl Immature Gran % (Auto) 0.4 (0-0.5) % Neut % (Auto) 81.7 H (45.5-73.1) % Lymph % (Auto) 11.3 L (18.3-44.2) % [place] % (Auto) 6.4 (2.6-8.5) % Eos % (Auto) 0.0 (0-4.4) % Baso % (Auto) 0.2 (0.2-1.2) % Lymph # (Auto) 1.59 (0.9-3.2) K/mm3 [place] # (Auto) 0.9 H (0.1-0.6) K/mm3 Eos # (Auto) 0.0 (0-0.3) K/mm3 Baso # (Auto) 0.0 (0.0-0.1) K/mm3 Abs Immat Gran (auto) 0.06 H (0.00-0.031) K/mm3 Absolute Neuts (auto) 11.5 H (1.3-6.7) K/mm3 Absolute Nucleated RBC 0.000 (0.0-0.012) K/mm3 Nucleated RBC % 0.0 (0.0-0.2) % PT 14.1 (11.1-14.7) Seconds INR 1.1 APTT 22.3 (22.3-36.8) Seconds Sodium 139 (137-145) mmol/L Potassium 3.7 (3.4-5.0) mmol/L Chloride 107 (98-107) mmol/L Carbon Dioxide 18 L (22-30) mmol/L Anion Gap 14 H (4-12) mmol/L BUN 22 H (9-20) mg/dL Creatinine 0.96 (0.7-1.3) mg/dL Estim Creat Clear Calc 55 ml/min Estimated GFR > 60 (59 - ) Glucose 129 H (65-110) mg/dL Calcium 9.2 (8.4-10.2) mg/dL Total Bilirubin 0.7 (0.2-1.3) mg/dL AST 45 (17-59) U/L ALT 18 (6-50) U/L Alkaline Phosphatase 54 (38-126) U/L Total Protein 8.0 (6.3-8.2) g/dL Albumin 4.4 (3.5-5.1) g/dL Blood Type O Positive Antibody Screen Negative Discharge Plan Discharge Clinical Impression: Ulcerative colitis Qualifiers: Ulcerative colitis location: unspecified ulcerative colitis location Digestive disease complication type: without complication Qualified Code(s): K51.90 - Ulcerative colitis, unspecified, without complications Patient Disposition: Home Condition: Stable Instructions: Ulcerative Colitis (ED) Additional Instructions: You are being prescribed a steroid burst to help treat in ulcerative colitis flare. Follow-up with GI. Return the ER if you have worsening symptoms, you lose consciousness, or you have severe abdominal pain. Patient Language: Romanian Prescriptions: New prednisone 50 mg tablet 50 mg PO DAILY Qty: 6 0RF No Action coenzyme Q10 [Co Q-10] 30 mg capsule 30 mg PO DAILY cholecalciferol (vitamin D3) 325 mcg (13,000 unit) capsule 325 mcg PO WEEKLY triamcinolone acetonide 0.1 % cream 1 applic topical BID Qty: 80 0RF cetirizine [Zyrtec] 10 mg tablet 5 mg PO DAILY PRN (Reason: allergies) multivitamin Tablet 2 tablet PO DAILY saw palmetto 1,000 mg capsule 1,000 mg PO DAILY glucosamine sulfate [Glucosamine] 500 mg tablet 500 mg PO BID Remicade 100 mg recon soln 400 mg IVPB .COMPLEX Rx Instructions: 400 mg IV every 7 weeks; balsalazide 750 mg capsule See Rx Instructions .ROUTE .COMPLEX Qty: 540 11RF Dose Instruction: TAKE 3 CAPSULES BY MOUTH TWICE DAILY Rx Instructions: TAKE 3 CAPSULES BY MOUTH TWICE DAILY fenofibric acid (choline) 135 mg capsule,delayed release(DR/EC) See Rx Instructions .ROUTE .COMPLEX Qty: 90 2RF Dose Instruction: TAKE 1 CAPSULE BY MOUTH EVERY DAY Rx Instructions: TAKE 1 CAPSULE BY MOUTH EVERY DAY lisinopril 20 mg tablet See Rx Instructions .ROUTE .COMPLEX Qty: 90 2RF Dose Instruction: TAKE 1 TABLET BY MOUTH EVERY DAY Rx Instructions: TAKE 1 TABLET BY MOUTH EVERY DAY zolpidem 5 mg tablet 5 mg PO ONCE PRN (Reason: Sleep) Qty: 30 2RF famotidine 40 mg tablet See Rx Instructions .ROUTE .COMPLEX Qty: 180 2RF Dose Instruction: TAKE 1 TABLET BY MOUTH TWICE A DAY Rx Instructions: TAKE 1 TABLET BY MOUTH TWICE A DAY ipratropium bromide 42 mcg (0.06 %) spray,non-aerosol See Rx Instructions .ROUTE .COMPLEX Qty: 45 2RF Dose Instruction: ADMINISTER 2 SPRAYS IN EACH NOSTRIL THREE TIMES A DAY Rx Instructions: ADMINISTER 2 SPRAYS IN EACH NOSTRIL THREE TIMES A DAY amlodipine 10 mg tablet See Rx Instructions .ROUTE .COMPLEX Qty: 90 2RF Dose Instruction: TAKE 1 TABLET BY MOUTH DAILY Rx Instructions: TAKE 1 TABLET BY MOUTH DAILY Follow-up/Referrals: Narciso Ryan MD [Primary Care Provider] - Kristian Rosado MD [Physician] - 1 Week
[2024-11-19] MEDS: predniSONE 40 MG, predniSONE 10 MG 50 MG PO (21:28)
[2024-11-19 21:32] VITALS: BP 186/73; PULSE 80; RESP 12; TEMP 36.7; O2SAT 96
== END 2024-11-19 21:30 | disposition home or self-care (01) ==
PROVIDERS: Student in an Organized Health Care Education/Training Program; Emergency Provider Emergency Medicine; PCP Emergency Medicine
DX: K51.90 Ulcerative colitis, unspecified, without complications (principal); E78.5 Hyperlipidemia, unspecified; I10 Essential (primary) hypertension; Z87.891 Personal history of nicotine dependence
CPT/HCPCS: 36415; 80053; 85025; 85610; 85730; 86850; 86900; 86901; 99283; J7512